=== PATIENT | female | born 1975 | race Caucasian/White ===

== ENCOUNTER 2018-03-23 09:10 | Inpatient (IN) | payer OTHER ==
[~2018-03-23] VITALS: Ht 170.1 cm; Wt 91.3 kg
[2018-03-23] VITALS (7 sets, daily range): BP systolic 122–164; BP diastolic 65–92
--- NOTE | ~2018-03-23 | ST ---
[place], [place] EXERCISE STRESS TEST REPORT NAME: JOSÉ MANUEL ADORNO [facility] #: [id number] UNIT #: [id number] ROOM: 406 DOCTOR: HOLLIE ENRIQUEZ,PERFECTO BIRTHDATE: [birth year] DOS: 03/24/2018 REFERRING PHYSICIAN: Dr. Artie Foster. REASON FOR TEST: Chest pain. PHYSICAL EXAMINATION NECK: Supple. LUNGS: Clear anteriorly. HEART: Regular rhythm. PROTOCOL: Nacho protocol. Total stress time 6 minutes. Maximum heart 167, which is 95% target heart rate. Peak blood pressure 140/70, adequate response. Total METS of 7 mets. Schaefer treadmill score 6. SYMPTOMS: The patient was chest pain free. EKG: No ischemia, no arrhythmias. CONCLUSION: Normal exercise treadmill stress test with no chest pain, no ischemia and the patient achieved 95% target heart rate and 7 mets. PERFECTO BROWNE MD CM:STRESS:EXERCISE STRESS TEST REPORT [id number] PERFECTO BROWNE MD
--- NOTE | ~2018-03-23 | PR ---
[place], [place] PROGRESS NOTE NAME: JOSÉ MANUEL ADORNO UNIT #: [id number] ROOM: 406 DOCTOR: PERFECTO BROWNE MD BIRTHDATE: [birth year] DOS: 03/24/2018 CARDIOLOGY FOLLOWUP VISIT NOTE REASON FOR VISIT: Chest pain. SUBJECTIVE: The patient denies any chest pain, no palpitation, not dizzy. No nausea or vomiting. No fever and chills, no cough. REVIEW OF SYSTEMS: Review of the 8 systems negative except as mentioned above. RHYTHM STRIPS: The patient in sinus rhythm. PHYSICAL EXAMINATION: VITAL SIGNS: Blood pressure 118/63, pulse 81, respiratory rate 20. Weight 91.3 kilos. GENERAL: Alert, comfortable, in no acute distress. HEENT: Pupils round, equal. No jaundice. NECK: Supple, no distended neck veins, no carotid bruit. CHEST: Symmetrical, nontender. LUNGS: Clear to auscultation bilaterally. HEART: Regular rhythm, no S3. EXTREMITIES: No edema. Distal pulses are palpable. SKIN: Warm and dry. No cyanosis, no clubbing. RECTAL: Deferred. GENITOURINARY: Deferred. MEDICATIONS AND ALLERGIES: Reviewed. IMPRESSION: 1. Chest pain, myocardial infarction ruled out. 2. Labile hypertension, currently stable. 3. Non-morbid obesity. RECOMMENDATIONS: 1. Exercise nuclear stress test today. 2. Blood pressure and heart rates are stable. 3. If stress test is normal, she can be discharged home today. [place], [place] PROGRESS NOTE NAME: JOSÉ MANUEL ADORNO UNIT #: [id number] ROOM: 406 DOCTOR: PERFECTO BROWNE MD BIRTHDATE: [birth year] PERFECTO BROWNE MD CM:PNTRANS [id number] 4 PERFECTO BROWNE MD 03/25/18 0144 interface
[~2018-03-23 09:10] MED LIST: ALBUTEROL0.09 MG/A2 INH; AMOXICILLIN500 MG PO; MIRALAX17 GM/DOSE PO; PREDNICOT20 MG PO; PROBIOTIC1 EAC4 PO
[2018-03-23] MEDS ORDERED: VITAMIN C1000 M5 PO (09:24)
[2018-03-23 09:36] LABS: BILIRUBIN NEGATIVE (NEGATIVE); BLOOD NEGATIVE (NEGATIVE); CLARITY CLEAR (CLEAR); COLOR YELLOW (YELLOW); GLUCOSE NEGATIVE (NEGATIVE); KETONE 3+ (NEGATIVE); LEUKO ESTERASE NEGATIVE (NEGATIVE); NITRITE NEGATIVE (NEGATIVE); SPECIFIC GRAVITY 1.015 (1.005-1.030); UROBILINOGEN 0.2 E.U./dl (0.2-1.0)
[2018-03-23 09:47] LABS: BASO # 0.1 10*3/uL (0.0-0.1); BASO % 0.8 % (0.0-1.0); EOS # 0.1 10*3/uL (0.0-0.4); EOS % 2.1 % (1.0-4.0); HEMATOCRIT 40.2 % (37.0-47.0); HEMOGLOBIN 13.2 g/dl (12.0-16.0); LYMPH # 1.8 10*3/uL (1.3-4.4); LYMPH % 27.1 % (27.0-41.0); MEAN CELL VOLUME 88.5 fl (81.0-99.0); MEAN CORPUSCULAR HGB 29.1 pg (27.0-31.0); MEAN CORPUSCULAR HGB CONC 32.8 g/dl (33.0-37.0); MEAN PLATELET VOLUME 8.9 fl (9.6-12.3); MONO # 0.5 10*3/uL (0.1-1.0); MONO % 7.8 % (3.0-9.0); NEUT % 61.9 % (47.0-73.0); PLATELET COUNT AUTOMATED 289 10*3/uL (130-400); RED BLOOD COUNT 4.54 10*6/uL (4.10-5.10); RED CELL DISTRI WIDTH 12.5 % (0-14.5); WHITE BLOOD COUNT 6.5 10*3/uL (4.8-10.8)
[2018-03-23 10:02] LABS: ALBUMIN 3.6 gm/dl (3.1-4.5); ALKALINE PHOSPHATASE 67 U/L (45-117); BUN 13 mg/dl (7-24); CHLORIDE 108 mmol/L (98-107); CREATININE 0.61 mg/dL (0.55-1.02); POTASSIUM 3.6 mmol/L (3.5-5.1); SGOT/AST 10 IU/L (3-35); SGPT/ALT 14 U/L (12-78); SODIUM 140 mmol/L (136-145); TOTAL PROTEIN 7.4 gm/dL (6.4-8.2)
[2018-03-23 10:03] LABS: TROPONIN I < 0.015 ng/ml (<0.045)
[2018-03-23 10:14] LABS: ACT PARTIAL THROMBO TIME 26.8 SECONDS (20.8-31.5)
[2018-03-24] VITALS: BP 111/63
[2018-03-24 06:45] LABS: BASO % 0.4 % (0.0-1.0); EOS # 0.2 10*3/uL (0.0-0.4); EOS % 2.2 % (1.0-4.0); HEMATOCRIT 41.8 % (37.0-47.0); HEMOGLOBIN 13.4 g/dl (12.0-16.0); LYMPH % 25.9 % (27.0-41.0); MEAN CELL VOLUME 90.7 fl (81.0-99.0); MEAN CORPUSCULAR HGB 29.1 pg (27.0-31.0); MEAN CORPUSCULAR HGB CONC 32.1 g/dl (33.0-37.0); MEAN PLATELET VOLUME 9.3 fl (9.6-12.3); MONO # 0.5 10*3/uL (0.1-1.0); MONO % 6.5 % (3.0-9.0); NEUT % 64.7 % (47.0-73.0); PLATELET COUNT AUTOMATED 297 10*3/uL (130-400); RED BLOOD COUNT 4.61 10*6/uL (4.10-5.10); RED CELL DISTRI WIDTH 12.9 % (0-14.5); WHITE BLOOD COUNT 7.7 10*3/uL (4.8-10.8)
[2018-03-24 07:06] LABS: BUN 9 mg/dl (7-24); CHLORIDE 110 mmol/L (98-107); CHOLESTEROL 218 mg/dL (<200); PHOSPHOROUS 2.3 mg/dL (2.5-4.9); SODIUM 141 mmol/L (136-145); TRIGLYCERIDES 75 mg/dl (<150); VLDL CHOLESTEROL 15 mg/dL (6-40)
[2018-03-24 07:14] LABS: FREE T4 1.08 ng/dl (0.76-1.46); HDL CHOLESTEROL 52 mg/dl (40-60); LDL CHOLESTEROL 151 mg/dL (9-159)
[2018-03-24 08:00] VITALS: BP 118/63
[2018-03-24 08:24] LABS: VITAMIN D, 25-HYDROXY 19.9 ng/mL (30-100)
[2018-03-24 12:00] VITALS: BP 122/74
[2018-03-24 16:00] VITALS: BP 126/72
[2018-03-24] MEDS ORDERED: LISINOPRIL5 MG PO (16:22)
== END 2018-03-24 16:37 | disposition home or self-care (01) | DRG 313 ==
LOC: ED 09:10 → 4E 09:48 → EDHOLD 09:48 → 4E 10:18
PROVIDERS: Emergency Medicine; Internal Medicine
DX: R07.9 Chest pain, unspecified (principal); E44.0 Moderate protein-calorie malnutrition; E87.8 Other disorders of electrolyte and fluid balance, not elsewhere classified; R03.0 Elevated blood-pressure reading, without diagnosis of hypertension; I10 Essential (primary) hypertension; E66.09 Other obesity due to excess calories; Z82.3 Family history of stroke; Z82.49 Family history of ischemic heart disease and other diseases of the circulatory system; Z79.899 Other long term (current) drug therapy; Z83.3 Family history of diabetes mellitus; Z68.31 Body mass index [BMI] 31.0-31.9, adult

== ENCOUNTER 2021-06-18 21:20 | Emergency (ER) | payer BC ==
[~2021-06-18] VITALS: Ht 170.1 cm; Wt 86.2 kg
[~2021-06-18 21:20] MED LIST changes: +LISINOPRIL5 MG PO; +VITAMIN C1000 M5 PO
[2021-06-18 22:16] LABS: BASO # 0.1 10*3/uL (0.0-0.1); BASO % 0.3 % (0.0-1.0); EOS # 0.2 10*3/uL (0.0-0.4); EOS % 1.4 % (1.0-4.0); HEMATOCRIT 42.6 % (37.0-47.0); LYMPH # 1.9 10*3/uL (1.3-4.4); LYMPH % 13.3 % (27.0-41.0); MEAN CELL VOLUME 89.9 fl (81.0-99.0); MEAN CORPUSCULAR HGB 28.7 pg (27.0-31.0); MEAN CORPUSCULAR HGB CONC 31.9 g/dl (33.0-37.0); MONO # 0.9 10*3/uL (0.1-1.0); MONO % 6.2 % (3.0-9.0); NEUT # 11.3 10*3/uL (2.3-7.9); NEUT % 77.4 % (47.0-73.0); PLATELET COUNT AUTOMATED 375 10*3/uL (130-400); RED BLOOD COUNT 4.74 10*6/uL (4.10-5.10); RED CELL DISTRI WIDTH 12.2 % (0-14.5); WHITE BLOOD COUNT 14.6 10*3/uL (4.8-10.8)
[2021-06-18 22:53] LABS: ALBUMIN 3.7 gm/dl (3.1-4.5); ALKALINE PHOSPHATASE 100 U/L (45-117); BUN 15 mg/dl (7-24); CHLORIDE 104 mmol/L (98-107); CREATININE 0.67 mg/dL (0.55-1.02); SGOT/AST 12 IU/L (3-35); SGPT/ALT 23 U/L (12-78); SODIUM 136 mmol/L (136-145); TOTAL PROTEIN 7.9 gm/dL (6.4-8.2)
[2021-06-18 22:53] LABS: BILIRUBIN Negative (Negative); BLOOD Negative (Negative); CLARITY Clear (Clear); COLOR Yellow (Yellow); GLUCOSE Negative (Negative); KETONE Negative (Negative); LEUKO ESTERASE Negative (Negative); NITRITE Negative (Negative); PH 6.5 (4.5-8.0); UROBILINOGEN 0.2 E.U./dl (0.0-1.0)
[2021-06-18 23:08] LABS: RBC 0-2 rbc/hpf (0-2); WBC 0-2 wbc/hpf (0-5)
[2021-06-19] MEDS ORDERED: FLAGYL500 MG PO (00:41)
[2021-06-19] MEDS ORDERED: CIPRO500 MG PO (00:41)
== END 2021-06-19 01:15 | disposition home or self-care (01) ==
LOC: ED 21:20
PROVIDERS: Internal Medicine
DX: K57.32 Diverticulitis of large intestine without perforation or abscess without bleeding (principal); R19.7 Diarrhea, unspecified; Z79.899 Other long term (current) drug therapy